=== PATIENT | male | born 2000 | race Caucasian/White ===

== ENCOUNTER → 2019-07-27 16:40 | Outpatient (CLI) | payer MEDICAID, SELFPAY ==
[2016-11-19 13:26] VITALS: BMI 23.4
[2019-07-27 18:46] LABS: HIV - WCH Non-Reactive (Nonreactive)
[2019-07-27 19:05] LABS: Neisserai gonorrhoeae by PCR Negative (Negative); Probe Check PASS; Sample Adequacy Control PASS; Specimen Processing Control PASS
[2019-07-30 11:33] LABS: HSV 2 IgG < 0.91 index (0.00-0.90)
[2019-08-03 02:40] LABS: Rapid Plasmin Reagin (RPR) NONREACTIVE (NONREACTIVE)
== END ==
PROVIDERS: Family Provider Family Medicine; PCP Family Medicine; Referring Provider Family Medicine; Visit Provider Family Medicine
DX: Z20.2 Contact with and (suspected) exposure to infections with a predominantly sexual mode of transmission (principal)
CPT/HCPCS: 36415; 86592; 86695; 86696; 86703; 87591

== ENCOUNTER → 2019-08-15 17:25 | Outpatient (CLI) | payer MEDICAID, SELFPAY ==
[2016-11-19 13:26] VITALS: BMI 23.4
[2019-08-15 20:46] LABS: Chlamydia Trachomatis by PCR Negative (Negative); Neisserai gonorrhoeae by PCR Negative (Negative); Probe Check PASS; Sample Adequacy Control PASS; Specimen Processing Control PASS
== END ==
PROVIDERS: Family Provider Family Medicine; PCP Family Medicine; Referring Provider Nurse Practitioner Family; Visit Provider Nurse Practitioner Family
DX: Z20.2 Contact with and (suspected) exposure to infections with a predominantly sexual mode of transmission (principal)
CPT/HCPCS: 87086; 87088; 87491; 87591

== ENCOUNTER 2019-08-20 17:19 | Emergency (ER) | payer MEDICAID, SELFPAY ==
[2019-08-20 17:20] VITALS: BP 139/81; PULSE 75; RESP 16; TEMP 36.7; O2SAT 97; BMI 23.7
--- NOTE | 2019-08-20 17:28 | US_ITS ---
STUDY: SCROTUM ULTRASOUND REASON FOR EXAM: Male, 19 years old. Left scrotal lump TECHNIQUE: Ultrasound evaluation of the scrotum was performed with color Doppler and static kelley-scale imaging. COMPARISON: None. FINDINGS: RIGHT TESTICLE INTRATESTICULAR: There is a normal size of the right testicle. The right testicle measures 3.7 x 2.3 x 1.4 cm. There is slightly heterogeneous echotexture. There is normal arterial and normal venous vascularity. There is no demonstrated right testicular mass or cyst. EXTRATESTICULAR: The epididymis is normal in size. The epididymis head measures 1.1 x 0.7 x 0.9 cm. There is normal vascularity of the epididymis. Tiny epididymal cyst measuring 3 x 3 x 2 mm. There is no demonstrated hydrocele. There is no demonstrated varicocele. There is no demonstrated extratesticular mass or cyst. LEFT TESTICLE INTRATESTICULAR: There is a normal size of the left testicle. The left testicle measures 3.6 x 2.4 x 1.6 cm. There is slightly heterogeneous echotexture. There is normal arterial and normal venous vascularity. There is no demonstrated left testicular mass or cyst. At the site of the clinically palpable lump there are prominent vessels EXTRATESTICULAR: The epididymis is normal in size. The epididymis head measures 1 x 0.7 x 0.6 cm. There is normal vascularity of the epididymis. There is no demonstrated epididymal cystic structure. There is no demonstrated hydrocele. There is a small Valsalva induced varicocele. There is no demonstrated extratesticular mass or cyst. US/Testicular with Arterial Flow IMPRESSION: No evidence for testicular mass or torsion. Small left-sided Valsalva induced varicocele. Tiny epididymal cyst on the right At the site of the clinically palpable lump there are prominent vessels of indeterminate etiology and clinical significance Electronically Signed: Hema Farmer MD at 18:55 EDT , Service support ,
--- NOTE | 2019-08-20 17:30 | ED.VIS.GEN ---
History of Present Illness Chief Complaint: Male Pain/Injury Informant: Patient Onset: Weeks Context: Gradual Onset Timing: Continuous Current Severity: Moderate Maximum Severity: Moderate Narrative: Patient presents to the emergency department with left testicular swelling and pain. He states he said the symptoms for the past 2 weeks. Discussed primary care to treat him for STD only throughout the day. He denies any fevers, chills, or sweats. He is having some difficulty urinating. He has never had pain like this before. Prior similar symptoms: Yes Recent Illness/Hospitalization: No Past Medical History - Allergies and Home Meds Allergies/Adverse Reactions: Allergies No Known Allergies Allergy (Verified 08/20/19 17:21) Primary Care Physician: Kostas Gloria MD [STAFF PHYSICIAN] - Prior records reviewed: Yes Past Medical History: None Surgical History: no surgical history Smoking Status: Never smoker Review of Systems General: Denies: Chills, Fever, Sweats Eyes: Denies: Visual changes - bilaterally, Diplopia ENT: Denies: Rhinorrhea, Sore throat Cardiovascular: Denies: Chest pain, Palpitations Respiratory: Denies: Dyspnea, Cough, Dyspnea on exertion Gastrointestinal: Denies: Abdominal pain, Nausea, Vomiting, Diarrhea, Melena, Hematochezia Genitourinary: Denies: Dysuria, Hematuria, Frequency Musculoskeletal: Denies: Back pain, Extremity Pain Skin: Denies: Rash, Wounds Neurological: Denies: Headache, Weakness, Numbness Physical Exam Vital Signs/Narrative: Vital Signs Temp Pulse Resp BP Pulse Ox 08/20/19 17:20 98.1 F 75 16 139/81 H 97 Inital Vital Signs reviewed: Yes General: Well nourished, Well developed, No Acute Distress Head: Normocephalic, Atraumatic Eyes: Perrl, EOMI ENT: Moist mucous membranes, No rhinorrhea Neck: Supple, Nontender Cardiovascular: Regular rate, Regular rhythm, No murmurs Respiratory: No distress, CTA bilaterally, Chest nontender Abdomen: Soft, Nontender, Nondistended, Normal bowel sounds : - - Patient does have soft tissue swelling of the left testicle. No significant tenderness. He does have some lymphadenopathy in the left inguinal region. Back: Nontender, Normal Inspection Extremities: Nontender, No edema Skin: Normal color, No rash Neurological: Alert, Oriented x3, Cranial nerves II-XII grossly intact, Normal Strength, Normal Sensation Psychological: Normal affect, Normal Mood Diagnostic/Tx/Re-eval Clinical Impression(s) from Imaging Studies Testicular Ultrasound 08/20/19 17:28 IMPRESSION: No evidence for testicular mass or torsion. Small left-sided Valsalva induced varicocele. Tiny epididymal cyst on the right At the site of the clinically palpable lump there are prominent vessels of indeterminate etiology and clinical significance Electronically Signed: Hema Farmer MD at 18:55 EDT , Service support , - Medical Decision Making The patient presents with left testicular pain. There is no evidence of torsion. His cremasteric is intact. Ultrasound was obtained. There are some vessels and he does have a varicocele with Valsalva. There is no evidence of mass, epididymitis, or other dangerous process. I do feel that he is likely symptomatic from the varicocele. The patient was counseled on concerning symptoms. He will be given outpatient urology follow-up. He will be discharged home. Impression 1. Left varicocele ED Disposition - Plan for ED Patient: Disposition: Home or Assisted Living Instructions: Varicocele Referrals: Kostas Gloria MD [STAFF PHYSICIAN] -
[2019-08-20 17:49] VITALS: RESP 16
[2019-08-20 17:54] LABS: Bacteria 0 SEEN /hpf (None Seen); Mucous, Urine 0 SEEN /hpf (<or=2+); Red Blood Cells-Urine 0 SEEN /hpf (0-5); Squamous Epithelial Cells - UA 0 SEEN /hpf (0-5); White Blood Cells 0 SEEN /hpf (0-5)
[2019-08-20 17:58] LABS: Color, Urine Yellow (Yellow); Glucose, Dipstick Normal (Normal); Ketone-Dipstick Negative (Negative); Leukocyte Esterase-Dipstick Negative /ul (Negative); Nitrite-Dipstick Negative (Negative); Occult Blood-Urine Negative /ul (Negative); Protein-Dipstick Negative (Negative); Urine Bilirubin Dipstick Negative (Negative); Urine Clarity Clear (Clear); Urine Urobilinogen Normal (Normal)
[2019-08-20 19:27] VITALS: BP 138/60; PULSE 70; RESP 18; O2SAT 96
== END 2019-08-20 19:27 | disposition home or self-care (01) ==
LOC: ED 17:44
PROVIDERS: Emergency Provider Emergency Medicine; Family Provider Family Medicine; PCP Family Medicine
DX: I86.1 Scrotal varices (principal)
CPT/HCPCS: 76870; 81001; 93976; 99282

== ENCOUNTER → 2019-08-21 17:04 | Outpatient (CLI) | payer MEDICAID, SELFPAY ==
[2019-08-20 17:20] VITALS: BMI 23.7
--- NOTE | 2019-08-21 17:07 | RAD_ITS ---
STUDY: X-RAY - LEFT KNEE REASON FOR EXAM: Male, 19 years old. Left knee pain. TECHNIQUE: 4 view(s) of the knee. COMPARISON: None. FINDINGS: Normal visualized distal femur. Normal visualized proximal tibia and fibula. Normal proximal tibiofibular articulation. There is no demonstrated fracture. Normal medial femorotibial compartment. Normal lateral femorotibial compartment. Normal patellofemoral articulation. There is mild joint effusion. The soft tissue structures are unremarkable. RAD/Knee 4 or More Views IMPRESSION: Mild joint effusion, otherwise normal x-ray examination of the knee. Electronically Signed: Natasha Batista MD at 0:19 EDT , Service support ,
== END ==
PROVIDERS: Family Provider Family Medicine; PCP Family Medicine; Referring Provider Family Medicine; Visit Provider Family Medicine
DX: M25.562 Pain in left knee (principal)
CPT/HCPCS: 73564

== ENCOUNTER 2019-09-11 12:03 | Emergency (ER) | payer MEDICAID, SELFPAY ==
[2019-09-11 12:04] VITALS: BP 150/64; PULSE 69; RESP 16; TEMP 36.8; O2SAT 100; BMI 21.6
--- NOTE | 2019-09-11 12:22 | ED.DCSUM_ITS ---
- ER Visit Summary Date of Service: 09/11/19 Chief Complaint: Left testicle pain History of Present Illness: The patient is a 19 M with left testicle pain for 5 weeks. He was seen previously here. He had STD testing, labs, urinalysis, ultrasound. Everything was fairly unremarkable except for findings concerning for varicocele. He was referred to urology for outpatient follow-up, but could not see that urologist because of insurance issues. He was referred to urologist in [place] who could not see him until October. He presents with continued pain. The pain is at the top of his left testicle. He reports some nausea but because of the pain and his semen has appeared kelley. Physical Examination: Afebrile and vital signs unremarkable. Normal inspection. No rashes, lesion, or discharge. Right testicle is unremarkable. Left testicle is tender to palpation over the epididymis. He does have the bag of worms mass to his left spermatic cord. No hernia or other masses appreciated. Test Results: None performed. Emergency Department Course and Treatment: I am concerned the patient may have epididymitis. He was not on antibiotics. His STD testing was negative. We will treat with Levaquin for 10 days. We will also treat with naproxen for pain. We will refer him to urology at [facility] and [facility]. He should call and see who can evaluate him sooner. There is no indication for emergency consultation, admission, or repeat diagnostic testing here today. Treatment Plan: As above Disposition: Discharge Impression: 1. Left testicle pain This note was generated with [employer] dictation software. It may contain incorrect words, spelling, and punctuation that were not noted in review of the chart prior to signing ED Disposition - Plan for ED Patient: Referrals: Emmett Noe MD [Primary Care Provider] -
--- NOTE | 2019-09-11 12:25 | ED.DEP ---
ED Disposition - Plan for ED Patient: Instructions: Epididymitis Prescriptions: Levofloxacin [Levaquin] 500 mg PO DAILY 9 Days #9 tab Prescription Printed Naproxen [Naprosyn] 500 mg PO BID PRN #20 tab Prescription Printed Ondansetron [Zofran Odt] 4 mg PO Q8H PRN PRN #10 tab PRN Reason: Nausea Prescription Printed Referrals: King Rosa [NON-STAFF] - Taran Begum [NON-STAFF] -
[2019-09-11] MEDS: levoFLOXacin 500 MG Tablet PO (12:40)
[2019-09-11] MEDS: Naproxen 500 MG Tablet PO (12:40)
== END 2019-09-11 12:44 | disposition home or self-care (01) ==
LOC: ED 12:25
PROVIDERS: Emergency Provider Emergency Medicine; Family Provider Family Medicine; PCP Family Medicine
DX: N50.812 Left testicular pain (principal); R11.0 Nausea
CPT/HCPCS: 99283

== ENCOUNTER → 2020-07-18 | Outpatient (CLI) | payer OTHER, SELFPAY ==
[2020-07-18 13:47] VITALS: BMI 21.6
[2020-07-18 16:45] LABS: Bacteria 0 SEEN /hpf (None Seen); Mucous, Urine 0 SEEN /hpf (<or=2+); Red Blood Cells-Urine 0 SEEN /hpf (0-5); Squamous Epithelial Cells - UA 0 SEEN /hpf (0-5); White Blood Cells 0 SEEN /hpf (0-5)
[2020-07-18 17:29] LABS: Color, Urine Yellow (Yellow); Glucose, Dipstick Normal (Normal); Ketone-Dipstick Negative (Negative); Leukocyte Esterase-Dipstick Negative /ul (Negative); Nitrite-Dipstick Negative (Negative); Occult Blood-Urine Negative /ul (Negative); Protein-Dipstick Negative (Negative); Specific Gravity, Urine 1.005 (1.002-1.030); Urine Bilirubin Dipstick Negative (Negative); Urine Clarity Clear (Clear); Urine Urobilinogen Normal (Normal)
== END | disposition home or self-care (01) ==
LOC: LABSPEC 15:44
PROVIDERS: PCP Family Medicine; Referring Provider Physician Assistant Surgical; Visit Provider Physician Assistant Surgical
DX: R30.0 Dysuria (principal)
CPT/HCPCS: 81001; 87086